=== PATIENT | female | born 1965 | race Caucasian/White ===

== ENCOUNTER 2024-08-04 06:15 | Day surgery (SDC) | payer BC, SELFPAY | END 2024-08-04 09:17 | disposition home or self-care (01) | LOC: GI 06:15 | PROVIDERS: ATTENDING PHYSICIAN Internal Medicine | DX: Z12.11 Encounter for screening for malignant neoplasm of colon (principal); K57.30 Diverticulosis of large intestine without perforation or abscess without bleeding; K62.89 Other specified diseases of anus and rectum; K51.40 Inflammatory polyps of colon without complications; K64.8 Other hemorrhoids; Z86.0100 Personal history of colon polyps, unspecified | CPT/HCPCS: 45380; 88305 ==